=== PATIENT | male | born 1960 | race Caucasian/White ===

== ENCOUNTER 2017-02-03 12:21 | Emergency (ER) | payer SELFPAY ==
[~2017-02-03] VITALS: Ht 177.8 cm; Wt 94.6 kg
[2017-02-03 12:36] VITALS: BP 130/77; PULSE 70; RESP 18; TEMP 98.6; O2SAT 97
--- NOTE | 2017-02-03 13:28 | PD ---
HPI Chief Complaint: Skin Problem Time Seen by Provider: 13:27 Travel History International Travel<30 days: No Contact w/Intl Traveler<30days: [place] Country Traveled to: [place] Traveled to known affect area: No History of Present Illness HPI 56-year-old male presents the ED for evaluation of 2 day history of pimple in the left groin. Patient states that the area was tender and sore so he punctured it with a needle and then squeezed the area. He states that he thought he had treated the problem however when he showered this morning he noticed bright red, area in the left groin traveling to the left testicle. He denies fever or chills. Denies difficulties with urination or defecation. Denies previous history of abscess or MRSA. Denies chronic problems, takes no daily medications. NKDA. PFSH Past Medical History Medical History: Denies Significant Hx Influenza Vaccination: No Past Surgical History Surgical History: No Previous Surgery Social History Alcohol Use: No Tobacco Use: No Substance Use: No Allergies-Medications (Allergen,Severity, Reaction): Coded Allergies: No Known Allergies (Unverified , 02/03/17) Reported Meds & Prescriptions Reported Meds & Active Scripts Active Ibuprofen 800 Mg Tab 800 Mg PO Q8H Keflex (Cephalexin) 250 Mg Cap 250 Mg PO Q6H 10 Days Bactrim DS (Sulfamethoxazole-Trimethoprim) 800-160 Mg Tab 1 Tab PO BID Review of Systems Except as stated in HPI: all other systems reviewed are Neg Physical Exam Narrative GENERAL: Well-nourished, well-developed nontoxic appearing white male in no acute distress. SKIN: Warm and dry. SKIN: There is an indurated area in the left groin which measures about 4 cm in diameter. It is fluctuant but there is no pointing or drainage. There is a zone of inflammation around it that travels into the left scrotum and thigh but no lymphangitis. HEAD: Normocephalic. EYES: No scleral icterus. No injection or drainage. NECK: Supple, trachea midline. No JVD or lymphadenopathy. CARDIOVASCULAR: Regular rate and rhythm without murmurs, gallops, or rubs. RESPIRATORY: Breath sounds equal bilaterally. No accessory muscle use. GASTROINTESTINAL: Abdomen soft, non-tender, nondistended. MUSCULOSKELETAL: No cyanosis, or edema. 5/5 strength with full, active, painless R Wu bilateral extremities. GENITOURINARY: Circumcised. Testes descended bilaterally without evidence of rotation. No lesions. No urethral discharge. Faint streaky erythema of the left scrotum and mild tenderness to palpation of the left testicle. BACK: Nontender without obvious deformity. No CVA tenderness. Data Data Last Documented VS Vital Signs Date Time Temp Pulse Resp B/P Pulse Ox O2 Delivery O2 Flow Rate FiO2 02/03/17 14:54 18 02/03/17 12:36 98.6 70 130/77 97 Room Air Orders Ketorolac Inj (Toradol Inj) (02/03/17 13:45) Us Testicles W Doppler (02/03/17 ) Lidocai-Epi 1%-1:100,000 Inj (Xylocaine- (02/03/17 15:00) Tetanus/Diphtheria Tox Adult (Tetanus/Di (02/03/17 16:00) Clindamycin Inj (Cleocin Inj) (02/03/17 16:00) Abscess Culture And Gram Stain (02/03/17 16:43) MDM Medical Decision Making Medical Screen Exam Complete: Yes Emergency Medical Condition: Yes Differential Diagnosis Folliculitis versus abscess versus cellulitis versus scrotal abscess versus Cristino's gangrene versus other Narrative Course 56-year-old male presents the ED for evaluation of 2 day history of pimple in the left groin. Patient states that the area was tender and sore so he punctured it with a needle and then squeezed the area. He states that he thought he had treated the problem however when he showered this morning he noticed bright red, area in the left groin traveling to the left testicle. He denies fever or chills, difficulties with urination or defecation, previous history of abscess or MRSA. Vitals reviewed. Physical exam reveals a nontoxic- appearing white male in no acute distress. There is an indurated area in the left groin which measures about 4 cm in diameter. It is fluctuant but there is no pointing or drainage. There is a zone of inflammation around it that travels into the left scrotum and thigh but no lymphangitis. Testes descended bilaterally without evidence of rotation. No lesions. No urethral discharge. Faint streaky erythema of the left scrotum and mild tenderness to palpation of the left testicle. Patient's tetanus immunization was updated. He was administered IM Toradol. Ultrasound of the scrotum reveals no evidence of abscess. I&D of the groin abscess was performed. They see my procedure note for details. Patient was administered 600 clindamycin IM, prescribed Bactrim DS , Keflex and ibuprofen. He is instructed take the medications as prescribed, return to the ED for packing removal and wound evaluation in 48 hours. He indicated understanding of instructions and is amenable to plan of care. He stable discharged home. Procedures Procedure Narrative INCISION AND DRAINAGE OF ABSCESS: The area was prepped and was sterilely draped. A subcutaneous wheal of 1 % Xylocaine with a total number 3 mL was used to anesthetize the area properly. A number 11 scalpel was used to make a 1 -cm incision across the area of the abscess. The abscess was drained, complex loculations were broken down, and irrigated with normal saline. Cultures were obtained. Quarter inch iodoform packing was placed in the wound. Sterile dressing applied. Patient advised to have packing removed in two days. Diagnosis Primary Impression: Abscess of left groin Additional Impression: Immunization, tetanus toxoid Referrals: Primary Care Physician Patient Instructions: Abscess Incision and Drainage (ED), General Instructions Additional Instructions: Rest, hydrate. Do not change the dressing for 24 hours. You may bathe normally. Do not submerge the wound. After bathing pat of wound dry. Allow the wound to air dry for 10-15 minutes. Apply a thin layer of antibiotic ointment and a clean, dry dressing. Take the antibiotics as they are prescribed, even if your symptoms resolved. Utilize [id number] pain medications, as described on the label, as needed. RETURN TO THE ED IN 24 HOURS FOR RECHECK OF THE WOUND AND PACKING REMOVAL. Follow-up with your primary care provider next week. Return to the ED for any urgent or emergent medical condition. Med/Other Pt SpecificInfo: Prescription(s) given Scripts Ibuprofen 800 Mg [id number] Mg PO Q8H #15 TAB Ref 0 Prov:Tonya Ramos DO 02/03/17 Cephalexin (Keflex)250 Mg [id number] Mg PO Q6H 10 Days Ref 0 Prov:Tonya Ramos DO 02/03/17 Sulfamethoxazole-Trimethoprim (Bactrim DS)800-160 Mg Tab1 Tab PO BID #14 TAB Ref 0 Prov:Tonya Ramos DO 02/03/17 Disposition: 01 DISCHARGE HOME Condition: Stable Mary Corcoran Feb 03, 2017 13:28
[2017-02-03] MEDS ORDERED: KETOROLAC TROMETHAMINE 60 MG/2 ML (IM) VIAL IM ONE (13:45)
[2017-02-03 14:54] VITALS: RESP 18
[2017-02-03] MEDS ORDERED: LIDOCAINE 1%/EPINEPHrine 1:100,000 SOLN 20 ML VIAL INFIL ONE (15:00)
--- NOTE | 2017-02-03 15:21 | RADHPO ---
EXAM DATE/TIME: 02/03/2017 14:27 [facility] COMPARISON: No previous studies available for comparison. INDICATIONS : Left groin redness, pain, and swelling. Left testicle painful. MEDICAL HISTORY : Left groin redness, pain, and swelling. Left testicle painful. SURGICAL HISTORY : None. ENCOUNTER: Initial ACUITY: 3 days PAIN SCORE: 2/10 LOCATION: Bilateral MEASUREMENTS: RIGHT TESTICLE: 3.8 x 4.0 x 2.6cm LEFT TESTICLE: 3.7 x 4.3 x 3.4cm FINDINGS: RIGHT TESTICLE: Homogeneous echotexture without intra or extratesticular mass. Blood flow is symmetric and within no rmal limits. No hydrocele or varicocele. Epididymis is within normal limits. LEFT TESTICLE: Homogeneous echotexture without intra or extratesticular mass. Blood flow is symmetric and within no rmal limits. Small hydrocele and small varicocele. Epididymis is within normal limits. SCROTUM: Within normal limits. CONCLUSION: Small left hydrocele and left varicocele. Testicles are normal with intact color flow Mark Anthony Ward MD on February 03, 2017 at 15:19 Board Certified Radiologist. This report was verified electronically.
[2017-02-03] MEDS ORDERED: IBUP800T23 PO (15:49)
[2017-02-03] MEDS ORDERED: CEPH-459 PO (15:49)
[2017-02-03] MEDS ORDERED: BACT800T5 PO (15:49)
[2017-02-03] MEDS ORDERED: CLINDAMYCIN PHOS 600 MG/4 ML VIAL IM ONE (16:00)
[2017-02-03] MEDS ORDERED: TETANUS/DIPHTHERIA TOXOID ADULT 0.5 ML VIAL IM ONE (16:00)
== END 2017-02-03 16:53 | disposition home or self-care (01) ==
LOC: PHEFT 12:21
DX: L02.214 Cutaneous abscess of groin (principal); Z23 Encounter for immunization
CPT/HCPCS: 10061; 76870; 86403; 87070; 87185; 87186; 87205; 90471; 90714; 93975; 96372; 99284; J1885

== ENCOUNTER 2017-02-05 09:52 | Emergency (ER) | payer SELFPAY ==
[~2017-02-05] VITALS: Ht 177.8 cm; Wt 94.0 kg
[~2017-02-05 09:52] MED LIST: BACT800T5 PO; CEPH-459 PO; IBUP800T23 PO
[2017-02-05 09:58] VITALS: BP 146/80; PULSE 63; RESP 16; TEMP 98.4; O2SAT 99
--- NOTE | 2017-02-05 11:23 | PD ---
HPI Chief Complaint: Wound/Suture/Staple Re-Check Time Seen by Provider: 11:11 Travel History International Travel<30 days: Yes Contact w/Intl Traveler<30days: Yes Name of Country Traveled to: Citizen Of [place] Traveled to known affect area: Yes History of Present Illness HPI This 56-year-old male is here for recheck of an abscess of the left groin. He had an irrigation and debridement of the abscess 2 days ago here. He was discharged on Keflex and Bactrim. He feels the abscess has subsided in size. The pain has subsided. He still has some residual swelling. PFSH Past Medical History Medical History: Denies Significant Hx Tetanus Vaccination: < 5 Years Influenza Vaccination: No Past Surgical History Surgical History: No Previous Surgery Social History Alcohol Use: No Tobacco Use: No Substance Use: No Allergies-Medications (Allergen,Severity, Reaction): Coded Allergies: No Known Allergies (Unverified , 02/05/17) Reported Meds & Prescriptions Reported Meds & Active Scripts Active Ibuprofen 800 Mg Tab 800 Mg PO Q8H Keflex (Cephalexin) 250 Mg Cap 250 Mg PO Q6H 10 Days Bactrim DS (Sulfamethoxazole-Trimethoprim) 800-160 Mg Tab 1 Tab PO BID Review of Systems General / Constitutional: No: Fever, Chills Gastrointestinal: No: Vomiting, Diarrhea Genitourinary: No: Frequency Physical Exam Narrative There is an area of induration in the left groin. The incision site does have a iodoform drain in place. This was removed. There is no active oozing at this time. He does remain some induration at the superior portion of the lesion. Data Data Last Documented VS Vital Signs Date Time Temp Pulse Resp B/P Pulse Ox O2 Delivery O2 Flow Rate FiO2 02/05/17 09:58 98.4 63 16 146/80 99 MDM Medical Decision Making Medical Screen Exam Complete: Yes Emergency Medical Condition: Yes Medical Record Reviewed: Yes Differential Diagnosis Differential includes healing abscess, question of some residual abscess or induration Narrative Course I recommended that he soak the wound in the tub and continue his antibiotics. Return if increased swelling or pain Diagnosis Primary Impression: Abscess of left groin Bora Del Castillo MD Feb 05, 2017 11:22
== END 2017-02-05 11:40 | disposition home or self-care (01) ==
LOC: PHED 09:52
DX: L02.214 Cutaneous abscess of groin (principal)
CPT/HCPCS: 99282